=== PATIENT | female | born 1940 | race Native Hawaiian/Other Pacific Islander ===

== ENCOUNTER 2017-12-12 06:15 | Day surgery (SDC) | payer OTHER ==
[2017-12-08 11:17] VITALS: BMI 23.8
[2017-12-12 07:12] VITALS: RESP 18
[2017-12-12] MEDS ORDERED: Lidocaine 2% Inj (20ml) ONE (07:27)
[2017-12-12] MEDS ORDERED: Propofol 10 mg/ml Inj (20 ML) ONE (07:38)
[2017-12-12] MEDS ORDERED: Midazolam 2 MG/2 ML VIAL ONE (07:38)
--- NOTE | 2017-12-12 07:41 | CP.PCM.PN ---
Subjective - Date & Time of Evaluation Date of Evaluation: 12/12/17 Time of Evaluation: 07:40 - Subjective Subjective: Pre-operative evaluation- Dr. Robledo 77 y/o female seen in pre-operative same day surgery prior to surgery with Dr. Robledo. Pt states she has had a painful bunion for over a year now on the right foot. Pt states the toes hurt as well, specifically the 2nd and 3rd toes at the top. She states it is painful to walk and she is ready for surgery. Confirms NPO status since last night at midnight except for her blood pressure medication. Denies F/C/N/V/CP/SOB PMHx: hypertension PSHx: glomus tumor right hand surgery All: NKDA Soc: social EtOH; denies cigarette or illicit drug use Objective - Vital Signs/Intake and Output Vital Signs (last 24 hours): Temp Pulse Resp BP Pulse Ox 98.4 F 83 18 149/75 98 12/12/17 07:11 12/12/17 07:15 12/12/17 07:11 12/12/17 07:11 12/12/17 07:11 - Constitutional Appears: Well, Non-toxic, No Acute Distress - Extremities Exam Additional comments: Right foot focused: Vasc: DP/PT pulses 2/4. Temperature gradient warm to cool, CFT < 3 seconds x 5 digits Derm: no open lesions, no erythema, no ecchymosis, no clinical signs of infection Neuro: protective sensation grossly intact Ortho: Hallux valgus deformity with prominent medial eminence noted. Pain with palpation to medial aspect of 1st MPJ right foot, 2nd and 3rd digit hammertoe contracture, pain with palaptiopn, MM is 5/5 in dorsiflexion, plantarflexion, inversion, eversion. - Neurological Exam Neurological Exam: Alert, Awake, Oriented x3 - Psychiatric Exam Psychiatric exam: Normal Affect, Normal Mood Assessment and Plan - Assessment and Plan (Free Text) Assessment: 77 y/o female with painful right foot hallux valgus deformity and 2nd and 3rd digit hammertoes, to go to OR at 7:45am with Dr. Robledo for bunion and hammertoe repair Plan: Pt was seen and examined in SDS Pt NPO status was confirmed All Pre-op testing and clearance was in the chart Pt has exhausted all conservative treatment at this time and is opting for surgical intervention Pt was explained procedure and post-operative course All pt's questions were answered to satisfaction No guarantees were made Pt understands all risks, benefits and complications of procedure Pt will follow-up with Dr. Robledo
--- NOTE | 2017-12-12 07:43 | CP.SDSHP ---
Same Day Surgery H & P - History Proposed Procedure: right foot 1st MPJ Hahn arthroplasty with K-wire fixation , 2nd digit hammertoe repair, possible 3rd digit hammertoe repair Pre-Op Diagnosis: right foot hallux valgus deformity of 1st MPJ, 2nd digit hammertoe, 3rd digit hammertoe - Previous Medical/Surgical History Cardiac: Hypertension Previous Surgical History: right hand glomus tumor excision - Allergies Allergies: Allergies No Known Allergies Allergy (Verified 12/12/17 06:46) - Physical Exam Vital Signs: Vital Signs 12/12/17 12/12/17 07:11 07:15 Temperature 98.4 F Pulse Rate 83 83 Respiratory 18 Rate Blood Pressure 149/75 O2 Sat by Pulse 98 Oximetry Mental Status: Alert & Oriented x3 - {Optional Preform as Required} Integument: WNL Ortho: Other (right foot 1st MPJ hallux valgus deformity, 2nd digit hammertoe, 3rd digit hammertoe) - Impression Impression: Pt was seen and examined in SDS. Pt NPO status was confirmed. All Pre-op testing and clearance was in the chart. Pt has exhausted all conservative treatment at this time and is opting for surgical intervention. Pt was explained procedure and post-operative course. All pt's questions were answered to satisfaction. No guarantees were made. Pt understands all risks, benefits and complications of procedure. Pt will follow-up with Dr. Robledo - Date & Time Date: 12/12/17 Time: 07:50 Short Stay Discharge - Short Stay Discharge Admitting Diagnosis/Reason for Visit: M20.11,M25.41 Disposition: HOME/ ROUTINE Referrals: Mike Robledo, DPM [Primary Care Provider] - Additional Instructions (Diet, Activity): --Patient in good/stable condition for discharge home. Pt to resume medications per medical reconciliation. Resume regular diet. Please keep dressing clean, dry, & intact to surgical site, use plastic bag over bandage for showering, wear post op shoe at all times when ambulating, call clinic if you see signs of infection (redness, swelling, malodor), please make an appointment to see Dr. Robledo in office/clinic within 1 week for post-op check. Progress Note/Discharge Note with Instructions: - Patient evaluated bedside in recovery s/p surgical procedure. - After surgical procedure patient in NAD - (+) Void, (+) Appetite - Capillary refill time <3s and NVSI intact. - Patient denies complaints at this time - Post operative instructions and plan of care explained to patient at length. - Pt. acknowledges understanding. - Patient stable for DC per podiatric surgery
[2017-12-12] MEDS ORDERED: Lactated Ringer's 1,000 ML IV ONE (08:34)
[2017-12-12] MEDS ORDERED: ceFAZolin 1 GM in Sodium Chloride 0.9% 100 ML IVPB SCH (09:00)
[2017-12-12] MEDS ORDERED: Dexamethasone 4 mg/1 ml ONE (09:27)
[2017-12-12] MEDS ORDERED: Bupivacaine 0.25% Inj(30mL) IJ ONE (09:33)
[2017-12-12] MEDS ORDERED: Lactated Ringer's 500 ML IV ONE (09:38)
[2017-12-12] MEDS ORDERED: Oxycodone/Acetaminophen 5/325 mg Tab PO PRN ×2 (09:44)
--- NOTE | 2017-12-12 09:49 | PCM.SURG1 ---
Surgeon's Initial Post Op Note - Surgeon's Notes Surgeon: Dr. Robledo Ground Instructor Advanced: Dr. Bañuelos, Dr. Santizo, Dr. Parker Type of Anesthesia: General LMA Anesthesia Administered By: Dr. Francois Pre-Operative Diagnosis: same Operative Findings: see dictation Post-Operative Diagnosis: same Operation Performed: 1. right foot 1st mpj ramos arthroplasty. 2. right foot 2nd digit arthroplasty. 3. right 2nd digit tenotomy. 4. right 2nd digit MPJ capsulotomy Specimen/Specimens Removed: none Estimated Blood Loss: EBL {In ML}: 3 Blood Products Given: N/A Drains Used: No Drains Post-Op Condition: Good Date of Surgery/Procedure: 12/12/17 Time of Surgery/Procedure: 08:00
[2017-12-12] MEDS ORDERED: Lactated Ringer's 1,000 ML IV SCH (10:00)
--- NOTE | 2017-12-12 12:12 | RAD ---
PROCEDURE: Right Foot Radiographs. HISTORY: s/p right foot surgery COMPARISON: None. FINDINGS: BONES: Postoperative changes of osteotomy involving the distal 1st metatarsal and proximal aspect proximal phalanx 1st toe. In situ fixation K-wire traversing the distal and residual proximal phalanx as well as the distal aspect 1st metatarsal. . There are expected postoperative changes within subcutaneous tissues including subcutaneous air and swelling. . Note also made of partial resection of the distal aspect proximal phalanx 2nd toe. The small plantar and tiny posterior surface calcaneal enthesophytes are present. JOINTS: Normal. SOFT TISSUES: Normal. OTHER FINDINGS: None. IMPRESSION: Postoperative changes of the 1st metatarsal and proximal phalanx with in situ fixation K-wire with surrounding subcutaneous swelling and subcutaneous air as above. Partial rib section distal aspect proximal phalanx 2nd toe.
[2017-12-12 14:37] VITALS: BP 143/71; PULSE 90; TEMP 97.9; O2SAT 97
--- NOTE | 2017-12-14 07:33 | OP ---
PROCEDURE DATE: 12/12/2017 PREOPERATIVE DIAGNOSES: Right foot hallux valgus and right foot second digit hammer toe. POSTOPERATIVE DIAGNOSES: Right foot hallux valgus and right foot second digit hammer toe. PROCEDURES: 1. Right foot first metatarsophalangeal joint Hahn arthroplasty. 2. Right foot proximal interphalangeal joint second digit arthroplasty. 3. Right foot second digit tenotomy. 4. Right foot second digit metatarsophalangeal joint capsulotomy. INDICATIONS: The patient is 77-year-old female with the above diagnoses. The patient has exhausted all conservative treatment at this time and now requests surgical intervention. The patient signed a consent after careful explanation of risks, benefits, complications, and alternatives for surgical procedure. No guarantees were given nor implied. SURGEON: Mike Robledo DPM SURVEY WORKER: Devorah Bañuelos, PGY-1, , and Dr. Thony Parker, PGY1. TYPE OF ANESTHESIA: General LMA. ANESTHESIA ADMINISTERED BY: Shyam Francois MD PREPARATION: The patient was brought into the operating room and placed on the operating room table in a supine position. A well padded pneumatic ankle tourniquet was applied to the patient's right ankle in a supramalleolar position. A time-out was performed for identification of the correct patient and procedure. After induction of general LMA anesthesia, the right foot was then prepped and draped in normal sterile manner. The patient's right foot was then exsanguinated with an Esmarch and the pneumatic ankle tourniquet was inflated to 255 mmHg and the procedure began. DESCRIPTION OF PROCEDURE: Procedure #1: Right foot Hahn arthroplasty of first metatarsophalangeal joint. Attention was directed to the dorsomedial aspect of the patient's first metatarsophalangeal joint, where an approximately 6 cm linear longitudinal incision was made medial and parallel to the extensor hallucis longus tendon and involving the contour of the osseus deformity. The incision was deepened to the subcutaneous tissues with care being taken to identify and retract all vital neurovascular structures. Careful dissection was carried out through the subcutaneous tissues using Metzenbaum scissors as well as sterile forceps and a sterile #15 blade. All bleeders were cauterized and ligated as necessary. At this time, a linear periosteal and capsular incision was made overlying the first metatarsophalangeal joint. The periosteal and capsular structures were carefully dissected free of their osseus attachments and reflected medial and laterally, thus exposing the head of the first metatarsal as well as the base of the proximal phalanx. Next, using a sagittal bone saw, the dorsal and medial common eminences of the first metatarsal head were resected and passed through the operating field. Attention was then directed to the base of the proximal phalanx, and approximately one-third of the proximal aspect of the proximal phalanx was resected using sagittal bone saw. At this time, a 0.062 K-wire was driven in a retrograde fashion through the remaining aspect of the proximal phalanx exiting at the distal aspect of the digit. 2-0 Vicryl sutures were then used to begin closure of the capsular structures and allow for capsular interposition at the site of the arthroplasty. The same 0.062 K-wire was then retrograded proximally through the first metatarsal ensuring that there was a gap left at the side of the Hahn arthroplasty. This gap measured approximately 0.5 cm. The site was then copiously irrigated with sterile saline solution. The remaining capsular structures were then reapproximated and coapted using 2-0 Vicryl sutures. The subcuticular tissues were reapproximated and coapted with 4-0 Vicryl sutures, and the skin was reapproximated and coapted using 4-0 nylon sutures. PROCEDURE #2: Right foot second digit PIP joint arthroplasty. Attention was then directed to the second digit of the patient's right foot, which was noted to be contracted and approximately 2 cm linear incision was made on the dorsal aspect of the proximal interphalangeal joint in a longitudinal fashion. Sharp dissection was carried down through the deep tissues with care being taken to identify and retract all vital neurovascular structures. All bleeders were ligated and cauterized as necessary. At this time, a transverse tenotomy and capsulotomy was performed to the proximal interphalangeal joint. The head of the proximal phalanx was then freed of its capsular and ligament attachments. Next, using a sagittal saw, the head of the proximal phalanx was resected and passed from the operative site. The site was then copiously irrigated with sterile saline. The extensor tendon was then reapproximated using 3-0 Vicryl sutures. PROCEDURE #3: Right foot second MPJ capsulotomy. Attention was then directed to the same incision noted at the dorsal aspect of the right second digit, directing attention more proximally to the second metatarsophalangeal joint. At this time, a capsulotomy was performed at the level of the second metatarsophalangeal joint to allow for greater correction of the second digit hammertoe deformity. PROCEDURE #4: Right foot second MPJ tenotomy. Attention was then directed to the proximal aspect of the same incision noted to the dorsal aspect of the right foot second digit. Using the visualization previously created by the hammertoe correction as well as the second MPJ capsulotomy, a flexure tenotomy was then performed at the level of the second metatarsophalangeal joint allowing for greater correction of the second digit hammertoe deformity. Right foot was then injected with 10 mL of 0.5% Marcaine postoperatively as well as 10 mL of dexamethasone 4 mg/mL. The right foot was then dressed with Xeroform, dry sterile dressing, and then Ho bandage. POSTOPERATIVE CONDITION: The patient tolerated the anesthesia and procedure well and was escorted to the recovery room with vital signs stable and neurovascular status intact to the right foot. The patient will be full weightbearing in a surgical shoe and will follow up with Dr. Robledo in his office within 1 week of surgery. Devorah Bañuelos DPM Mike Robledo DPM
== END 2017-12-12 15:10 | disposition home or self-care (01) ==
LOC: H.OPSURG 06:15
PROVIDERS: ATTEND Podiatrist Foot & Ankle Surgery
DX: M20.11 Hallux valgus (acquired), right foot (principal); I10 Essential (primary) hypertension; M17.0 Bilateral primary osteoarthritis of knee; M20.41 Other hammer toe(s) (acquired), right foot
CPT/HCPCS: 28285; 28296; 73630; 88304; 97162; C1713; G8978; G8979; G8980; J0690; J1100; J2001; J2250; J2704; J3010; J7030; J7120